=== PATIENT | male | born 1990 | race Caucasian/White ===

== ENCOUNTER 2018-07-30 07:40 | Day surgery (SDC) ==
[2018-07-30] MEDS ORDERED: PEPCID ONE (08:00)
[2018-07-30] MEDS ORDERED: LR 1,000 ML ONE ×2 (08:00→14:07)
[2018-07-30] MEDS ORDERED: REGLAN ONE (08:00)
[2018-07-30] MEDS ORDERED: KEFZOL 2 GM/D5W 2 GM/50 ML IVPB ONE (08:00)
[2018-07-30] MEDS ORDERED: XYLOCAINE-MPF 2% ONE (08:22)
[2018-07-30] MEDS ORDERED: VERSED ONE (08:22)
[2018-07-30] MEDS ORDERED: DIPRIVAN 1% ONE (08:23)
[2018-07-30] MEDS ORDERED: FENTANYL ONE (08:23)
[2018-07-30] MEDS ORDERED: QUELICIN (DOSE) ONE (08:23)
[2018-07-30] MEDS ORDERED: DECADRON ONE (10:26)
[2018-07-30] MEDS ORDERED: ZOFRAN ONE (10:26)
[2018-07-30] MEDS ORDERED: OFIRMEV 1000 MG/ISOTONIC SOLN 1,000 MG/100 ML BOTTLE ONE (10:57)
[2018-07-30] MEDS ORDERED: MARCAINE 0.5% PF ONE (11:05)
[2018-07-30] MEDS ORDERED: EXPAREL 1.3% ONE (11:05)
[2018-07-30] MEDS ORDERED: MORPHINE ONE ×2 (12:08→12:33)
[2018-07-30] MEDS ORDERED: OXY IR PO PRN (12:25)
[2018-07-30] MEDS ORDERED: MORPHINE IV PRN (12:25)
[2018-07-30] MEDS: PHENERGAN ONE ×3 (12:39→12:45)
[2018-07-30] MEDS: DILAUDID ONE ×2 (12:46→12:50)
[2018-07-30] MEDS ORDERED: BENADRYL IV PRN (13:15)
[2018-07-30] MEDS ORDERED: PHENERGAN IV PRN (13:15)
[2018-07-30] MEDS ORDERED: ZOFRAN IV PRN (13:15)
[2018-07-30] MEDS ORDERED: SODIUM CHLORIDE 0.9% INJ PRN (13:15)
[2018-07-30] MEDS ORDERED: LR 1,000 ML IV SCH (13:15)
[2018-07-30] MEDS ORDERED: NARCAN IV PRN (13:15)
--- NOTE | 2018-07-30 13:45 | OPERATIVE NOTE ---
PROCEDURE DATE: 07/30/2018 PREOPERATIVE DIAGNOSES: 1. Right osteomyelitis midfoot with resultant bony defect. 2. 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 POSTOPERATIVE DIAGNOSES: 1. Right osteomyelitis midfoot with resultant bony defect. 2. 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 PROCEDURES: 1. Right bone graft major from the femur. 2. Right midtarsal multiple joint fusions with distraction allograft wedge. 3. A 22 modifier for usual procedure. SURGEON: Dr. Camron Velasco. BIOLOGY FACULTY MEMBER: Porsha Deluna NP, who was an integral part of the case, helping with all aspects of the case, and helping to increase our OR efficiency greatly. ANESTHESIA: General with LMA. TOURNIQUET TIME: About a hour and a half. IMPLANTS: 1. [facility] Ortholoc medial midfoot fusion plate and screws. 2. [facility] bony allograft wedge. DISPOSITION: To PACU, hemodynamically stable. INDICATION FOR PROCEDURE: Mr. Osborn is a 27-year-old male who I have been following for months now. He originally came in last year with osteomyelitis of his midfoot from IV drug abuse, ended up doing a big irrigation and debridement and partial excision of his navicular and antibiotic spacer. He then came back in May with it reinfected, so we went back in again, cleaned everything out did another antibiotic spacer. Since then, everything has calmed down. His labs were all normal and he is ready for surgical intervention to stabilize the foot. I went over with him the procedure, he expressed understanding and wished to proceed. DESCRIPTION OF PROCEDURE: Mr. Osborn was identified in the preoperative holding area. The right foot was marked as correct surgical site. He was then wheeled to the operating room, placed supine on the operating table. All bony prominences well padded. He was induced under general anesthesia. LMA was placed. Right lower extremity then prepped with chlorhexidine, gluconate scrub and then ChloraPrep, and draped in normal sterile fashion. Surgical pause was performed. We identified the correct patient, correct side, and the correct procedure. Preop antibiotics were given. I started the foot 1st, made an incision through our previous incision. Dissection was carried down all the way to the cement spacer. I was able to elevate the soft tissue around the spacer. There was no purulence there. I did not see anything that looks like infection. So I then wrapped Coban around that area with some gauze to slow any bleeding and then we came up proximally. I made an incision just proximal to his greater trochanter. Dissection was carried down. I got my guidewire in good position on his greater trochanter, drilled it, used the opening reamer to open up that area. I passed a ball-tip and guidewire down to the knee. I then used a the [employer] ETELVINA system and got bone graft from his femoral intramedullary canal. We got probably about a good 40 mL of bone. We then closed that in layered fashion with 0 Vicryl for the deep layer, 2-0 Vicryl for the subcutaneous and tata on the skin. I then put a sterile tourniquet on. Esmarch was used to exsanguinate the right lower extremity and the tourniquet was inflated to 300 mmHg. Came back down to the foot. I took out the cement spacer and there was a lot of fibrous tissue all throughout the wound. I then used a curette osteotome and rongeur and cleaned off all the fibrous tissue back to nice raw bleeding bone. There was really no navicula left at all and so I exposed the subchondral bone of the medial, intermediate, and lateral cuneiforms and the talar head. There was a pretty good size defect there after I prepared the joints really well. I drilled them and then used osteotome to break apart that subchondral bone a little bit even more. I then used an allograft wedge that we had soaked in the bone graft and packed it in there to keep my length. I then packed this bone graft all around that area very tightly and it filled in really well. After this, I used Ortholoc 3D plate and screws, 3 screws proximally in the talus and 3 screws distally in the cuneiforms. That spanned that whole area and is the reason I put a 22 modifier because shaping that allograft wedge was difficult in the positioning of the foot down was difficult but I feel like we got position really good. I do not think he is abducted or adducted at the forefoot. Once we got the plate in place, I then got final images which showed that the bone graft fit really well and there is really no space there that was exposed. Everything had been packed in really well. Plate and screws all looked to be in good position. We then closed in layered fashion 0 Vicryl for the deep layer, 2-0 Vicryl for the subcutaneous and nylon on the skin and there was not really without much tension on the skin either. Adaptic, 4x4s, ABD, soft roll, posterior splint was applied. Tourniquet was let down. Patient had good capillary refill return to the toes. He was then wheeled from general anesthesia, moved to his own bed and taken to the PACU in stable condition. PLAN: Postoperatively, he will be nonweightbearing to the right lower extremity. He will be admitted for observation and some antibiotics, and if everything looks good in the morning, we will plan on discharging him home. cc: Camron Velasco MD
[2018-07-30] MEDS: DILAUDID PCA VIAL IV PRN (14:31)
[2018-07-30] MEDS: TORADOL IV SCH ×2 (18:19→22:54)
[2018-07-30] MEDS: KEFZOL 1 GM/D5W 1 GM/50 ML IVPB IV SCH (18:20)
[2018-07-30] MEDS: OXY IR PO PRN ×2 (18:38→21:25)
[2018-07-30] MEDS: PERIDEX MT SCH (20:50)
[2018-07-31] MEDS: OXY IR PO PRN ×4 (00:33→10:18)
[2018-07-31] MEDS: KEFZOL 1 GM/D5W 1 GM/50 ML IVPB IV SCH ×2 (01:09→07:42)
[2018-07-31] MEDS: PHENERGAN ONE (02:36)
[2018-07-31] MEDS: DILAUDID ONE (02:37)
[2018-07-31] MEDS: TORADOL IV SCH ×3 (02:38→06:27)
[2018-07-31] MEDS: LOVENOX SUBQ SCH ×2 (04:57→06:27)
[2018-07-31] MEDS: PERIDEX MT SCH ×2 (07:41→10:19)
[2018-07-31 07:45] VITALS: BP 126/77
[2018-07-31] MEDS: DILAUDID PCA VIAL IV PRN (09:01)
--- NOTE | 2018-07-31 09:09 | PROGRESS NOTE ---
DATE: 07/31/2018 SUBJECTIVE: Mr. Osborn is lying in bed this morning. Overall feeling okay. Having some pain. OBJECTIVE: Right lower extremity exam: Splint is clean, dry, and intact. Iceman is hooked up. He is able to move his toes well. He has good sensation to light touch to the toes and good capillary refill to all the toes. ASSESSMENT: Status post right midfoot fusion with bone graft from the femur. PLAN: Mr. Osborn will be discharged home today. He is strict nonweightbearing right lower extremity. I will see him in a week in clinic. cc: Camron Velasco MD
--- NOTE | 2018-08-01 03:36 | DISCHARGE SUMMARY ---
ADMISSION DATE: 07/30/2018 DISCHARGE DATE: 07/31/2018 ADMISSION DIAGNOSIS: Right foot osteomyelitis with bone defect in the mid foot. DISCHARGE DIAGNOSIS: Right foot osteomyelitis with bone defect in the mid foot. PROCEDURE: Right midfoot arthrodesis with bone graft from the femur. DISCHARGE MEDICATIONS: Percocet and aspirin. DISPOSITION: Home. FOLLOW-UP: Followup in [address] Velasco. HOSPITAL COURSE: Mr. Osborn was admitted to observation after his procedure. He has convalesced very well. His pain is controlled. He is ready for discharge. He will be discharged today and follow up with me in 1 week. cc: Camron Velasco MD
== END 2018-07-31 10:52 | disposition home or self-care (01) ==
LOC: SURHOLD 07:40 → OR 07:40 → 4N 15:41 → OR 07-31 10:52
PROVIDERS: ATTEND Orthopaedic Surgery
CPT/HCPCS: 76000; 87070; 87075; 87205; 94760; A9270; C9290; J0131; J0330; J0690; J1100; J1170; J1650; J1885; J2250; J2270; J2405; J2550; J3010; J7120; S0020